=== PATIENT | female | born 1970 | race Caucasian/White ===

== ENCOUNTER → 2020-06-06 | Outpatient (CLI) | payer BC | END | disposition home or self-care (01) | LOC: RAD 08:38 | PROVIDERS: ATTEND Family Medicine | DX: R51 Headache (principal); R63.4 Abnormal weight loss | CPT/HCPCS: 70450 ==

== ENCOUNTER → 2020-06-07 | Outpatient (CLI) | payer BC | END | disposition home or self-care (01) | LOC: RAD 06:53 | PROVIDERS: ATTEND Family Medicine | DX: R05 Cough (principal); R63.4 Abnormal weight loss; F17.200 Nicotine dependence, unspecified, uncomplicated | CPT/HCPCS: 71046 ==

== ENCOUNTER 2020-06-10 06:52 | Outpatient (CLI) | payer BC | END 2020-06-10 23:59 | disposition home or self-care (01) | LOC: CFH 06:52 | PROVIDERS: ATTEND Family Medicine | DX: Z12.31 Encounter for screening mammogram for malignant neoplasm of breast (principal) | CPT/HCPCS: 77063; 77067 ==